=== PATIENT | male | born 1985 | race Caucasian/White ===

== ENCOUNTER → 2022-04-05 | Outpatient (CLI) | payer MEDICAID ==
[~2022-04-05] MED LIST: LUNE3TAB36 PO; OMEP10CASR PO; ROZE8TAB16 PO; SERO1TAB3 PO; SERO400T PO
[2022-04-05 16:23] LABS: BASO % 0.5 % (0.0-1.0); EOS # 0.1 10^3/uL (0.0-0.5); EOS % 1.7 % (0.0-3.0); HEMATOCRIT 51.4 % (42.0-52.0); HEMOGLOBIN 16.7 g/dl (13.5-17.5); LYMPH # 1.8 10^3/uL (1.5-5.0); LYMPH % 28.7 % (24.0-44.0); MEAN CORPUSCULAR HEMOGLOBIN 27.8 pg (27.0-33.0); MEAN CORPUSCULAR HGB CONC 32.5 g/dl (32.0-36.5); MEAN CORPUSCULAR VOLUME 85.7 fl (80.0-96.0); MONO # 0.5 10^3/uL (0.0-0.8); MONO % 8.3 % (2.0-8.0); NEUTROPHILS # 3.8 10^3/uL (1.5-8.5); NEUTROPHILS % 60.2 % (36.0-66.0); PLATELET COUNT, AUTOMATED 265 10^3/uL (150-450); WHITE BLOOD COUNT 6.3 10^3/uL (4.0-10.0)
[2022-04-05 16:24] LABS: ALBUMIN 4.3 G/DL (3.2-5.2); ALKALINE PHOSPHATASE 102 U/L (46-116); ALT/SGPT 75 U/L (7.0-40); AST/SGOT 41 U/L (<34); BILIRUBIN,TOTAL 0.4 MG/DL (0.3-1.2); BLOOD UREA NITROGEN 15 MG/DL (9-23); CALCIUM LEVEL 9.9 MG/DL (8.5-10.1); CARBON DIOXIDE LEVEL 29 MMOL/L (20-31); CHLORIDE LEVEL 105 MMOL/L (98-107); CREATININE FOR GFR 1.01 MG/DL (0.70-1.30); GLOMERULAR FILTRATION RATE > 60.0 (>60); GLUCOSE, FASTING 90 MG/DL (60-100); POTASSIUM SERUM 4.9 MMOL/L (3.5-5.1); SODIUM LEVEL 139 MMOL/L (136-145); TOTAL PROTEIN 7.2 G/DL (5.7-8.2)
== END ==
LOC: M WUC 11:20
PROVIDERS: ATTEND Student in an Organized Health Care Education/Training Program
DX: Z00.00 Encounter for general adult medical examination without abnormal findings (principal)

== ENCOUNTER → 2022-05-01 | Outpatient (CLI) | payer OTHER ==
[~2022-05-01] MED LIST changes: +GASTROGRAFIN SOLUTION 30ML As Ordered ONE; +ISOVUE-370 76% 100ML VIAL As Ordered ONE
== END ==
LOC: M RAD 10:58
PROVIDERS: ATTEND Internal Medicine Hematology & Oncology
DX: C24.0 Malignant neoplasm of extrahepatic bile duct (principal)

== ENCOUNTER → 2022-06-14 | Outpatient (CLI) | payer OTHER, MEDICAID ==
[~2022-06-14] VITALS: Ht 170.2 cm; Wt 77.8 kg
[~2022-06-14] MED LIST changes: -GASTROGRAFIN SOLUTION 30ML As Ordered ONE; -ISOVUE-370 76% 100ML VIAL As Ordered ONE; +MORP15TA2 PO; +OXYM15SP2; +SENN-186 PO; +TUMS500C PO; +[UNRECOGNIZED DRUG - CODE] PO; +[UNRECOGNIZED DRUG - OTHER] PO
[2022-06-14 09:49] VITALS: BP 123/87
== END ==
LOC: M PAL 09:42
PROVIDERS: ATTEND Nurse Practitioner Adult Health
DX: C24.0 Malignant neoplasm of extrahepatic bile duct (principal); Z90.49 Acquired absence of other specified parts of digestive tract; R10.10 Upper abdominal pain, unspecified; G89.3 Neoplasm related pain (acute) (chronic); F41.9 Anxiety disorder, unspecified; R53.83 Other fatigue; Z51.5 Encounter for palliative care; K21.9 Gastro-esophageal reflux disease without esophagitis; Z79.891 Long term (current) use of opiate analgesic; Z79.899 Other long term (current) drug therapy; Z88.5 Allergy status to narcotic agent; Z88.6 Allergy status to analgesic agent; Z80.3 Family history of malignant neoplasm of breast; Z80.42 Family history of malignant neoplasm of prostate; Z87.891 Personal history of nicotine dependence

== ENCOUNTER → 2022-07-24 | Outpatient (CLI) | payer OTHER, MEDICAID ==
[~2022-07-24] VITALS: Ht 170.2 cm; Wt 79.2 kg
[~2022-07-24] MED LIST changes: +DILA2TAB6 PO; +GLYC2TAB18 PO
[2022-07-24 15:20] VITALS: BP 124/87
== END ==
LOC: M PAL 15:08
PROVIDERS: ATTEND Nurse Practitioner Adult Health
DX: G89.3 Neoplasm related pain (acute) (chronic) (principal); Z90.49 Acquired absence of other specified parts of digestive tract; Z85.09 Personal history of malignant neoplasm of other digestive organs; Z51.5 Encounter for palliative care; F41.9 Anxiety disorder, unspecified; F32.A Depression, unspecified; F31.9 Bipolar disorder, unspecified; Z56.1 Change of job; Z79.899 Other long term (current) drug therapy; Z79.891 Long term (current) use of opiate analgesic; Z88.6 Allergy status to analgesic agent; Z88.5 Allergy status to narcotic agent

== ENCOUNTER → 2022-08-21 | Outpatient (CLI) | payer OTHER, MEDICAID ==
[~2022-08-21] VITALS: Ht 165.1 cm; Wt 77.3 kg
[2022-08-21 15:32] VITALS: BP 127/80; O2SAT 97
== END ==
LOC: M PAL 15:15
PROVIDERS: ATTEND Nurse Practitioner Adult Health
DX: C24.0 Malignant neoplasm of extrahepatic bile duct (principal); R10.10 Upper abdominal pain, unspecified; Z90.49 Acquired absence of other specified parts of digestive tract; G89.3 Neoplasm related pain (acute) (chronic); F41.9 Anxiety disorder, unspecified; R53.83 Other fatigue; Z51.5 Encounter for palliative care; K21.9 Gastro-esophageal reflux disease without esophagitis; Z79.891 Long term (current) use of opiate analgesic; Z79.899 Other long term (current) drug therapy; Z88.5 Allergy status to narcotic agent; Z88.6 Allergy status to analgesic agent; Z80.3 Family history of malignant neoplasm of breast; Z80.42 Family history of malignant neoplasm of prostate

== ENCOUNTER → 2022-10-05 | Outpatient (CLI) | payer OTHER, MEDICAID ==
[2022-10-05 17:04] LABS: BASO # 0.1 10^3/uL (0.0-0.2); BASO % 0.8 % (0.0-1.0); EOS # 0.2 10^3/uL (0.0-0.5); EOS % 2.2 % (0.0-3.0); HEMOGLOBIN 16.8 g/dl (13.5-17.5); LYMPH # 2.6 10^3/uL (1.5-5.0); LYMPH % 35.7 % (24.0-44.0); MEAN CORPUSCULAR HEMOGLOBIN 28.8 pg (27.0-33.0); MEAN CORPUSCULAR HGB CONC 34.3 g/dl (32.0-36.5); MEAN CORPUSCULAR VOLUME 83.9 fl (80.0-96.0); MONO # 0.6 10^3/uL (0.0-0.8); MONO % 8.3 % (2.0-8.0); NEUTROPHILS # 3.7 10^3/uL (1.5-8.5); NEUTROPHILS % 52.4 % (36.0-66.0); PLATELET COUNT, AUTOMATED 236 10^3/uL (150-450); RED BLOOD COUNT 5.84 10^6/uL (4.30-6.10); WHITE BLOOD COUNT 7.1 10^3/uL (4.0-10.0)
[2022-10-05 17:26] LABS: FREE T4 1.26 NG/DL (0.89-1.76); THYROID STIMULATING HORMONE 1.085 uIU/ML (0.55-4.78)
== END ==
LOC: M LAB 16:14
PROVIDERS: ATTEND Student in an Organized Health Care Education/Training Program
DX: N52.9 Male erectile dysfunction, unspecified (principal); K92.1 Melena

== ENCOUNTER → 2022-10-23 | Outpatient (CLI) | payer BC, OTHER, MEDICAID ==
[~2022-10-23] MED LIST changes: +CREO12CA PO; +CREO24CA PO
[2022-10-23 13:57] VITALS: BP 122/82; TEMP 97.3; O2SAT 96
== END ==
LOC: M PAL 13:50
PROVIDERS: ATTEND Nurse Practitioner Adult Health
DX: C24.0 Malignant neoplasm of extrahepatic bile duct (principal); G89.3 Neoplasm related pain (acute) (chronic); F41.9 Anxiety disorder, unspecified; F32.A Depression, unspecified; Z51.5 Encounter for palliative care; K21.9 Gastro-esophageal reflux disease without esophagitis; Z79.891 Long term (current) use of opiate analgesic; Z79.899 Other long term (current) drug therapy; Z80.3 Family history of malignant neoplasm of breast; Z88.5 Allergy status to narcotic agent; Z88.6 Allergy status to analgesic agent; Z90.49 Acquired absence of other specified parts of digestive tract

== ENCOUNTER 2022-12-07 11:23 | Day surgery (SDC) | payer BC, OTHER ==
[~2022-12-07] VITALS: Ht 170.2 cm; Wt 74.6 kg
[~2022-12-07 11:23] MED LIST changes: -LUNE3TAB36 PO; +LUNE3TAB50 PO; +NS 1,000 ML IV ONE; +ONDA4TAB6; +SOD175SO
[2022-12-07] MEDS ORDERED: fentaNYL 100 MCG/2 ML INJECTION As Ordered ONE (13:13)
[2022-12-07] MEDS ORDERED: propofoL 500 MG/50 ML VIAL As Ordered ONE (13:13)
[2022-12-07] MEDS ORDERED: LIDOCAINE 2% 100MG/5ML SDV (FOR ANES.) As Ordered ONE (13:13)
[2022-12-07 14:32] VITALS: BP 130/71; TEMP 99.1; O2SAT 97
== END 2022-12-07 14:25 | disposition home or self-care (01) ==
LOC: M OPP 11:23
PROVIDERS: ATTEND Internal Medicine Gastroenterology
DX: K92.1 Melena (principal); D12.6 Benign neoplasm of colon, unspecified; K59.00 Constipation, unspecified; K64.4 Residual hemorrhoidal skin tags; K64.8 Other hemorrhoids; K44.9 Diaphragmatic hernia without obstruction or gangrene; K29.70 Gastritis, unspecified, without bleeding; Z98.0 Intestinal bypass and anastomosis status; K31.89 Other diseases of stomach and duodenum; G47.30 Sleep apnea, unspecified; Z79.51 Long term (current) use of inhaled steroids; Z79.52 Long term (current) use of systemic steroids; Z79.83 Long term (current) use of bisphosphonates; Z79.891 Long term (current) use of opiate analgesic; Z79.899 Other long term (current) drug therapy; Z88.5 Allergy status to narcotic agent; Z88.6 Allergy status to analgesic agent
CPT/HCPCS: 43239; 45385; 88305; J3010

== ENCOUNTER → 2022-12-27 | Outpatient (CLI) | payer BC, OTHER, MEDICAID ==
[~2022-12-27] MED LIST changes: -NS 1,000 ML IV ONE
[2022-12-27 13:01] VITALS: BP 158/95; O2SAT 97
== END ==
LOC: M PAL 12:39
PROVIDERS: ATTEND Nurse Practitioner Adult Health
DX: C24.0 Malignant neoplasm of extrahepatic bile duct (principal); D12.4 Benign neoplasm of descending colon; Z51.5 Encounter for palliative care; G89.3 Neoplasm related pain (acute) (chronic); F41.9 Anxiety disorder, unspecified; F32.A Depression, unspecified; K21.9 Gastro-esophageal reflux disease without esophagitis; K44.9 Diaphragmatic hernia without obstruction or gangrene; Z71.2 Person consulting for explanation of examination or test findings; Z79.891 Long term (current) use of opiate analgesic; Z79.899 Other long term (current) drug therapy; Z80.3 Family history of malignant neoplasm of breast; Z88.5 Allergy status to narcotic agent; Z90.49 Acquired absence of other specified parts of digestive tract

== ENCOUNTER → 2023-04-04 | Outpatient (CLI) | payer BC, OTHER, MEDICAID ==
[~2023-04-04] VITALS: Ht 170.2 cm; Wt 81.9 kg
[~2023-04-04] MED LIST changes: +CO Q10CA PO; +PREG25CA PO
[2023-04-04 10:25] VITALS: BP 146/93; O2SAT 95
== END ==
LOC: M PAL 10:20
PROVIDERS: ATTEND Nurse Practitioner Adult Health
DX: C24.0 Malignant neoplasm of extrahepatic bile duct (principal); Z51.5 Encounter for palliative care; G89.3 Neoplasm related pain (acute) (chronic); R10.84 Generalized abdominal pain; F41.9 Anxiety disorder, unspecified; F32.A Depression, unspecified; K21.9 Gastro-esophageal reflux disease without esophagitis; Z79.891 Long term (current) use of opiate analgesic; Z79.899 Other long term (current) drug therapy; Z80.3 Family history of malignant neoplasm of breast; Z88.5 Allergy status to narcotic agent; Z90.49 Acquired absence of other specified parts of digestive tract; Z98.890 Other specified postprocedural states

== ENCOUNTER 2023-04-19 13:23 | Emergency (ER) | payer BC, OTHER ==
[~2023-04-19] VITALS: Ht 170.2 cm; Wt 79.5 kg
[2023-04-19 14:31] LABS: APPEARANCE, URINE CLEAR (CLEAR); BACTERIA, URINE AUTO NEGATIVE (NEGATIVE); BILIRUBIN, URINE AUTO NEGATIVE (NEGATIVE); BLOOD, URINE BLOOD NEGATIVE (NEGATIVE); COLOR, URINE STRAW (YELLOW); GLUCOSE, URINE (UA) AUTO NEGATIVE (NEGATIVE); KETONE, URINE AUTO NEGATIVE (NEGATIVE); LEUKOCYTE ESTERASE, URINE AUTO NEGATIVE (NEGATIVE); NITRITE, URINE AUTO NEGATIVE (NEGATIVE); PROTEIN, URINE AUTO NEGATIVE (NEGATIVE); RBC, URINE AUTO 0 /HPF (0-3); SPECIFIC GRAVITY URINE AUTO 1.004 (1.002-1.035); SQUAMOUS EPITHELIAL CELL UR AU 0 /HPF (0-6); UROBILINOGEN, URINE AUTO 0.2 mg/dL (0.0-2.0); WBC, URINE AUTO 0 /HPF (0-3)
[2023-04-19 14:33] LABS: BASO % 0.3 % (0.0-1.0); EOS % 0.4 % (0.0-3.0); HEMATOCRIT 49.8 % (42.0-52.0); HEMOGLOBIN 17.8 g/dl (13.5-17.5); LYMPH # 1.5 10^3/uL (1.5-5.0); LYMPH % 14.2 % (24.0-44.0); MEAN CORPUSCULAR HEMOGLOBIN 29.3 pg (27.0-33.0); MEAN CORPUSCULAR HGB CONC 35.7 g/dl (32.0-36.5); MONO # 0.7 10^3/uL (0.0-0.8); MONO % 6.3 % (2.0-8.0); NEUTROPHILS # 8.4 10^3/uL (1.5-8.5); NEUTROPHILS % 78.5 % (36.0-66.0); PLATELET COUNT, AUTOMATED 258 10^3/uL (150-450); RED BLOOD COUNT 6.07 10^6/uL (4.30-6.10); WHITE BLOOD COUNT 10.7 10^3/uL (4.0-10.0)
[2023-04-19] MEDS ORDERED: ISOVUE-370 76% 100ML VIAL As Ordered ONE (14:34)
[2023-04-19 14:49] LABS: LIPASE 33 U/L (12-53)
[2023-04-19] MEDS: ONDANSETRON 4MG 2ML VIAL IV ONE (14:50)
[2023-04-19 14:51] LABS: ALBUMIN 4.2 G/DL (3.2-5.2); ALKALINE PHOSPHATASE 122 U/L (46-116); ALT/SGPT 59 U/L (7.0-40); AST/SGOT 30 U/L (<34); BILIRUBIN,DIRECT 0.1 MG/DL (<0.4); BILIRUBIN,TOTAL 0.4 MG/DL (0.3-1.2); BLOOD UREA NITROGEN 13 MG/DL (9-23); CALCIUM LEVEL 9.7 MG/DL (8.5-10.1); CARBON DIOXIDE LEVEL 23 MMOL/L (20-31); CHLORIDE LEVEL 109 MMOL/L (98-107); CREATININE FOR GFR 1.07 MG/DL (0.70-1.30); GLOMERULAR FILTRATION RATE > 60.0 (>60); GLUCOSE, FASTING 92 MG/DL (60-100); POTASSIUM SERUM 4.3 MMOL/L (3.5-5.1); SODIUM LEVEL 139 MMOL/L (136-145); TOTAL PROTEIN 7.3 G/DL (5.7-8.2)
[2023-04-19] MEDS: HYDROMORPHONE HCL 0.5 MG/ 0.5 ML SYRINGE IV PRN (14:51)
[2023-04-19 15:06] LABS: INR 1.02; PARTIAL THROMBOPLASTIN TIME 27.2 SECONDS (24.8-34.2); PROTHROMBIN TIME 13.1 SECONDS (12.5-14.5)
[2023-04-19] MEDS: NS 1,000 ML IV ONE (15:18)
[2023-04-19 15:21] LABS: RSV AMPLIFICATION NEGATIVE (NEGATIVE)
[2023-04-19 15:30] LABS: CK-MB VALUE MASS 1.3 NG/ML (<3.6)
[2023-04-19 15:34] LABS: CPK CREATINE PHOSPHOKINASE 89 U/L (46-171); MB/CK RELATIVE INDEX 1.46 (< OR =4)
[2023-04-19] MEDS ORDERED: GOLYLQ PO (15:49)
[2023-04-19] MEDS: METHYLNALTREXONE BROMIDE 12MG/0.6ML VIAL (RELISTOR) SC ONE (15:56)
[2023-04-19] MEDS: methylPREDNISolone 125MG 2ML VIAL IV ONE (15:56)
[2023-04-19] MEDS: GOLYTELY SOLN 4000 ML BTL PO ONE (15:56)
[2023-04-19 16:59] VITALS: BP 126/90; TEMP 98.2; O2SAT 96
== END 2023-04-19 17:14 | disposition home or self-care (01) ==
LOC: M ED 13:23
DX: K59.00 Constipation, unspecified (principal); Z87.11 Personal history of peptic ulcer disease; Z85.09 Personal history of malignant neoplasm of other digestive organs; Z79.899 Other long term (current) drug therapy; Z88.5 Allergy status to narcotic agent
CPT/HCPCS: 71275; 74174; 80047; 80048; 80076; 81001; 82550; 82553; 83605; 83690; 84484; 85025; 85610; 85730; 87040; 87631; 93005; 93041; 94760; 96361; 96372; 96374; 96375; 99284; J1170; J2212; J2405; J2930; Q9967

== ENCOUNTER → 2023-06-19 | Outpatient (CLI) | payer BC, MEDICAID ==
[~2023-06-19] MED LIST changes: +GOLYLQ PO; +OMEP-173 PO
[2023-06-19 08:05] VITALS: BP 136/88; O2SAT 94
== END ==
LOC: M PAL 07:46
PROVIDERS: ATTEND Nurse Practitioner Adult Health
DX: C24.0 Malignant neoplasm of extrahepatic bile duct (principal); G89.3 Neoplasm related pain (acute) (chronic); R10.84 Generalized abdominal pain; F41.9 Anxiety disorder, unspecified; F32.A Depression, unspecified; K21.9 Gastro-esophageal reflux disease without esophagitis; Z51.5 Encounter for palliative care; Z79.891 Long term (current) use of opiate analgesic; Z79.899 Other long term (current) drug therapy; Z80.3 Family history of malignant neoplasm of breast; Z88.5 Allergy status to narcotic agent; Z90.49 Acquired absence of other specified parts of digestive tract; Z98.890 Other specified postprocedural states

== ENCOUNTER → 2023-08-19 | Outpatient (CLI) | payer BC, OTHER ==
[~2023-08-19] MED LIST changes: +ESZO1TAB6; +HYDR2TAB2; +ONDA-282; -ONDA4TAB6; +PANT40TA29; +PREG25CA3
== END ==
LOC: M PAL 07:40
PROVIDERS: ATTEND Nurse Practitioner Adult Health
DX: C24.0 Malignant neoplasm of extrahepatic bile duct (principal); G89.3 Neoplasm related pain (acute) (chronic); R10.84 Generalized abdominal pain; G47.00 Insomnia, unspecified; F41.9 Anxiety disorder, unspecified; F32.A Depression, unspecified; K21.9 Gastro-esophageal reflux disease without esophagitis; Z51.5 Encounter for palliative care; Z79.891 Long term (current) use of opiate analgesic; Z79.899 Other long term (current) drug therapy; Z80.3 Family history of malignant neoplasm of breast; Z88.5 Allergy status to narcotic agent; Z90.49 Acquired absence of other specified parts of digestive tract; Z98.890 Other specified postprocedural states

== ENCOUNTER → 2023-10-15 | Outpatient (CLI) | payer BC, OTHER, MEDICAID ==
[~2023-10-15] MED LIST changes: +VONO20TA PO
[2023-10-15 14:53] VITALS: BP 145/87; O2SAT 95
== END ==
LOC: M PAL 14:44
PROVIDERS: ATTEND Nurse Practitioner Adult Health
DX: C24.0 Malignant neoplasm of extrahepatic bile duct (principal); G89.3 Neoplasm related pain (acute) (chronic); R10.84 Generalized abdominal pain; N50.819 Testicular pain, unspecified; F41.9 Anxiety disorder, unspecified; F32.A Depression, unspecified; K21.9 Gastro-esophageal reflux disease without esophagitis; Z51.5 Encounter for palliative care; Z79.891 Long term (current) use of opiate analgesic; Z79.899 Other long term (current) drug therapy; Z80.3 Family history of malignant neoplasm of breast; Z88.5 Allergy status to narcotic agent; Z90.49 Acquired absence of other specified parts of digestive tract; Z98.890 Other specified postprocedural states

== ENCOUNTER → 2023-10-21 | Outpatient (CLI) | payer BC | LOC: M RAD 15:20 | PROVIDERS: ATTEND Internal Medicine | DX: N50.812 Left testicular pain (principal); D29.22 Benign neoplasm of left testis ==

== ENCOUNTER → 2023-10-21 | Outpatient (CLI) | payer BC | LOC: M RAD 08:17 | PROVIDERS: ATTEND Specialist | DX: C24.0 Malignant neoplasm of extrahepatic bile duct (principal); Z53.9 Procedure and treatment not carried out, unspecified reason ==

== ENCOUNTER → 2023-10-22 | Outpatient (REF) | payer BC | LOC: M LAB REF 17:24 | PROVIDERS: ATTEND Internal Medicine | DX: N50.812 Left testicular pain (principal) ==

== ENCOUNTER → 2023-11-04 | Outpatient (CLI) | payer BC, MEDICAID ==
[~2023-11-04] MED LIST changes: +ISOVUE-370 76% 100ML VIAL As Ordered ONE
== END ==
LOC: M RAD 13:22
PROVIDERS: ATTEND Urology
DX: N50.89 Other specified disorders of the male genital organs (principal)
CPT/HCPCS: 71260; 74177; Q9967

== ENCOUNTER → 2023-11-05 | Outpatient (CLI) | payer BC ==
[~2023-11-05] VITALS: Ht 170.2 cm; Wt 84.0 kg
[~2023-11-05] MED LIST changes: -ISOVUE-370 76% 100ML VIAL As Ordered ONE
[2023-11-05 15:11] VITALS: BP 138/96; O2SAT 97
== END ==
LOC: M PAL 14:11
PROVIDERS: ATTEND Nurse Practitioner Adult Health
DX: C24.0 Malignant neoplasm of extrahepatic bile duct (principal); G89.3 Neoplasm related pain (acute) (chronic); R10.84 Generalized abdominal pain; C62.92 Malignant neoplasm of left testis, unspecified whether descended or undescended; N50.819 Testicular pain, unspecified; F41.9 Anxiety disorder, unspecified; F32.A Depression, unspecified; K21.9 Gastro-esophageal reflux disease without esophagitis; Z51.5 Encounter for palliative care; Z79.891 Long term (current) use of opiate analgesic; Z79.899 Other long term (current) drug therapy; Z80.3 Family history of malignant neoplasm of breast; Z88.5 Allergy status to narcotic agent; Z90.49 Acquired absence of other specified parts of digestive tract; Z98.890 Other specified postprocedural states

== ENCOUNTER → 2023-11-20 | Outpatient (CLI) | payer BC ==
[2023-11-20 14:26] LABS: APPEARANCE, URINE CLEAR (CLEAR); BACTERIA, URINE AUTO NEGATIVE (NEGATIVE); BILIRUBIN, URINE AUTO NEGATIVE (NEGATIVE); BLOOD, URINE BLOOD NEGATIVE (NEGATIVE); COLOR, URINE YELLOW (YELLOW); GLUCOSE, URINE (UA) AUTO NEGATIVE (NEGATIVE); KETONE, URINE AUTO NEGATIVE (NEGATIVE); LEUKOCYTE ESTERASE, URINE AUTO NEGATIVE (NEGATIVE); NITRITE, URINE AUTO NEGATIVE (NEGATIVE); PROTEIN, URINE AUTO NEGATIVE (NEGATIVE); RBC, URINE AUTO 0 /HPF (0-3); SPECIFIC GRAVITY URINE AUTO 1.011 (1.002-1.035); SQUAMOUS EPITHELIAL CELL UR AU 0 /HPF (0-6); UROBILINOGEN, URINE AUTO 0.2 mg/dL (0.0-2.0); WBC, URINE AUTO 0 /HPF (0-3)
[2023-11-20 14:42] LABS: INR 1.09; PROTHROMBIN TIME 13.8 SECONDS (12.5-14.5)
== END ==
LOC: M LAB 13:18
PROVIDERS: ATTEND Urology
DX: N50.89 Other specified disorders of the male genital organs (principal)

== ENCOUNTER 2023-11-29 10:52 | Day surgery (SDC) | payer BC ==
[~2023-11-29] VITALS: Ht 167.6 cm; Wt 82.9 kg
[~2023-11-29 10:52] MED LIST changes: -ONDA-282; +ONDA-282 PO; +ceFAZolin SOD 1 GM in D5W MINI-BAG PLUS 50 ML IV ONE
[2023-11-29] MEDS ORDERED: KETOROLAC 60MG 2ML VIAL As Ordered ONE (12:57)
[2023-11-29] MEDS ORDERED: MIDAZOLAM INJ 2MG/2ML VIAL As Ordered ONE (12:57)
[2023-11-29] MEDS ORDERED: propofoL 200 MG/20 ML VIAL As Ordered ONE (12:57)
[2023-11-29] MEDS ORDERED: ACETAMINOPHEN 1000MG 100ML IV BAG As Ordered ONE (12:57)
[2023-11-29] MEDS ORDERED: LIDOCAINE 2% 100MG/5ML SDV (FOR ANES.) As Ordered ONE (12:57)
[2023-11-29] MEDS ORDERED: ONDANSETRON 4MG 2ML VIAL As Ordered ONE (12:57)
[2023-11-29] MEDS ORDERED: fentaNYL 100 MCG/2 ML INJECTION As Ordered ONE (12:58)
[2023-11-29] MEDS ORDERED: dexmedeTOMIDine (4MCG/ML)200MCG/50ML BTL (PRECEDEX) As Ordered ONE (13:00)
[2023-11-29] MEDS: ceFAZolin SOD 2 GM in IV 1 EA IV ONE (13:10)
[2023-11-29] MEDS ORDERED: HYDROmorphone HCL 2MG/ML 1ML VIAL As Ordered ONE (13:31)
[2023-11-29] MEDS: LIDOCAINE 2% MDV 20ML VIAL As Ordered ONE (13:45)
[2023-11-29] MEDS ORDERED: CEPH500C PO (13:59)
[2023-11-29] MEDS ORDERED: HYDR-3713 PO (13:59)
[2023-11-29] MEDS ORDERED: fentaNYL 100 MCG/2 ML INJECTION IV PRN (14:00)
[2023-11-29] MEDS: ONDANSETRON 4MG 2ML VIAL IV PRN (14:23)
[2023-11-29] MEDS: MORPHINE 2 MG/ML 1ML VIAL IV PRN (14:25)
[2023-11-29 16:07] VITALS: BP 140/92; TEMP 96.9; O2SAT 96
[2023-12-02] MEDS ORDERED: SENN-186 PO (14:50)
== END 2023-11-29 16:00 | disposition home or self-care (01) ==
LOC: M SDC 10:52
PROVIDERS: ATTEND Urology
DX: C62.92 Malignant neoplasm of left testis, unspecified whether descended or undescended (principal); K21.9 Gastro-esophageal reflux disease without esophagitis; G47.00 Insomnia, unspecified; F41.9 Anxiety disorder, unspecified; C24.9 Malignant neoplasm of biliary tract, unspecified; Z87.891 Personal history of nicotine dependence; Z88.5 Allergy status to narcotic agent
CPT/HCPCS: 54530; 88309; J0131; J0665; J0690; J1100; J1171; J1885; J2250; J2405; J3010

== ENCOUNTER → 2023-12-13 | Outpatient (CLI) | payer BC ==
[~2023-12-13] MED LIST changes: +CEPH500C PO; +HYDR-3713 PO; -ceFAZolin SOD 1 GM in D5W MINI-BAG PLUS 50 ML IV ONE
== END ==
LOC: M LAB 14:00
PROVIDERS: ATTEND Urology
DX: C62.92 Malignant neoplasm of left testis, unspecified whether descended or undescended (principal)

== ENCOUNTER → 2024-01-06 | Outpatient (REF) | payer OTHER | LOC: M LAB REF 13:09 | PROVIDERS: ATTEND Internal Medicine | DX: G62.9 Polyneuropathy, unspecified (principal) ==

== ENCOUNTER → 2024-03-25 | Outpatient (CLI) | payer BC ==
[~2024-03-25] VITALS: Ht 170.2 cm; Wt 170.0 kg
[2024-03-25 15:31] VITALS: BP 152/93; O2SAT 100
== END ==
LOC: M PAL 15:03
PROVIDERS: ATTEND Family Medicine
DX: Z51.5 Encounter for palliative care (principal); C24.0 Malignant neoplasm of extrahepatic bile duct; C62.90 Malignant neoplasm of unspecified testis, unspecified whether descended or undescended; R52 Pain, unspecified; R11.0 Nausea; Z79.891 Long term (current) use of opiate analgesic; Z79.899 Other long term (current) drug therapy; Z88.5 Allergy status to narcotic agent; Z90.49 Acquired absence of other specified parts of digestive tract; Z90.79 Acquired absence of other genital organ(s); Z92.21 Personal history of antineoplastic chemotherapy; Z98.890 Other specified postprocedural states

== ENCOUNTER → 2024-05-15 | Outpatient (REF) | payer OTHER | LOC: M LAB REF 11:57 | PROVIDERS: ATTEND Internal Medicine | DX: N52.9 Male erectile dysfunction, unspecified (principal); R68.82 Decreased libido ==

== ENCOUNTER → 2024-05-29 | Outpatient (REF) | payer OTHER | LOC: M LAB REF 12:13 | PROVIDERS: ATTEND Internal Medicine | DX: N52.9 Male erectile dysfunction, unspecified (principal); R68.82 Decreased libido ==

== ENCOUNTER → 2024-10-29 | Outpatient (CLI) | payer BC ==
[~2024-10-29] VITALS: Ht 170.2 cm; Wt 172.0 kg
[~2024-10-29] MED LIST changes: +HYDR1LIQ PO; -PREG25CA PO; +PREG25CA63 PO
[2024-10-29 15:55] VITALS: BP 147/83; O2SAT 97
== END ==
LOC: M PAL 15:14
PROVIDERS: ATTEND Physician Assistant
DX: Z51.5 Encounter for palliative care (principal); C22.1 Intrahepatic bile duct carcinoma; Z90.49 Acquired absence of other specified parts of digestive tract; Z92.21 Personal history of antineoplastic chemotherapy; Z85.3 Personal history of malignant neoplasm of breast; Z79.891 Long term (current) use of opiate analgesic; Z88.5 Allergy status to narcotic agent; Z79.899 Other long term (current) drug therapy

== ENCOUNTER → 2024-12-07 | Outpatient (CLI) | payer BC | LOC: M PAL 15:19 | PROVIDERS: ATTEND Physician Assistant | DX: Z51.5 Encounter for palliative care (principal); C22.1 Intrahepatic bile duct carcinoma; Z92.21 Personal history of antineoplastic chemotherapy; Z85.47 Personal history of malignant neoplasm of testis; Z90.79 Acquired absence of other genital organ(s); Z79.899 Other long term (current) drug therapy; Z88.5 Allergy status to narcotic agent; Z79.891 Long term (current) use of opiate analgesic ==